=== PATIENT | female | born 1995 | race Caucasian/White ===

== ENCOUNTER 2018-12-25 10:17 | Emergency (ER) | payer OTHER ==
[2018-12-25] MEDS ORDERED: ASPIRIN 81 MG TABLET, CHEWABLE PO ONE (11:40)
--- NOTE | 2018-12-25 11:40 | ER Document Report ---
ED Medical Screen (RME) - General Chief Complaint: Chest Pain Stated Complaint: CHEST PAIN Time Seen by Provider: 12/25/18 11:37 Primary Care Provider: HEALTH,EMPLOYEE [Primary Care Provider] - Follow up as needed Mode of Arrival: Ambulatory Information source: Patient Notes: 23-year-old female presented to ED for chest pain shortness of breath started last week. She states it feels like somebody is stabbing her in the back. She states she cannot breathe at all if she lays down. Her EKG shows a pulse of 130. But over the weekend it got much worse. She states she does not smoke she has not been on any long trips has had no recent surgery but she did just start on control. She states the pain is from the chest through to the back and radiates to the right. She states she went to urgent care yesterday and they diagnosed with bronchitis. She was started on inhaler and prednisone 50 mg for 3 days. She states she went from her desk to her bathroom and back and she could not breathe the day. I have greeted and performed a rapid initial assessment of this patient. A comprehensive ED assessment and evaluation of the patient, analysis of test results and completion of medical decision making process will be conducted by an additional ED providers. - Related Data Allergies/Adverse Reactions: No Known Allergies Allergy (Verified 12/25/18 11:36) Physical Exam - Vital signs Vitals: Temp Pulse Resp BP Pulse Ox 98.3 F 102 H 16 138/68 H 100 12/25/18 10:52 12/25/18 10:52 12/25/18 10:52 12/25/18 10:52 12/25/18 10:52 Course - Vital Signs Vital signs: Temp Pulse Resp BP Pulse Ox 98.3 F 102 H 16 138/68 H 100 12/25/18 10:52 12/25/18 10:52 12/25/18 10:52 12/25/18 10:52 12/25/18 10:52 Doctor's Discharge - Discharge Referrals: HEALTH,EMPLOYEE [Primary Care Provider] - Follow up as needed
--- NOTE | 2018-12-25 12:36 | RADIOLOGY REPORT (SQ) ---
EXAM DESCRIPTION: CHEST 2 VIEWS COMPLETED DATE/TIME: 12/25/2018 12:14 pm REASON FOR STUDY: Chest pain shortness of breath COMPARISON: None. TECHNIQUE: Frontal and lateral radiographic views of the chest acquired. NUMBER OF VIEWS: Two view. LIMITATIONS: None. FINDINGS: LUNGS AND PLEURA: No opacities, masses or pneumothorax. No pleural effusion. MEDIASTINUM AND HILAR STRUCTURES: No masses or contour abnormalities. HEART AND VASCULAR STRUCTURES: Heart normal size. No evidence for failure. BONES: No acute findings. HARDWARE: None in the chest. OTHER: No other significant finding. IMPRESSION: NO SIGNIFICANT RADIOGRAPHIC FINDING IN THE CHEST. TECHNICAL DOCUMENTATION: JOB ID: [id number] [employer]- All Rights Reserved Reading location - IP/workstation name: [email or web address]
[2018-12-25] MEDS ORDERED: NORMAL SALINE 1000 ML 1,000 ML IV ONE (12:54)
--- NOTE | 2018-12-25 12:54 | ER Document Report ---
ED General - General Chief Complaint: Shortness Of Breath Stated Complaint: CHEST PAIN Time Seen by Provider: 12/25/18 11:37 Primary Care Provider: HEALTH,EMPLOYEE [ACTIVE STAFF] - Follow up as needed Mode of Arrival: Ambulatory Notes: HPI: Patient is a 23-year-old female who presents today when she states that the onset within the last week of some pain to the left side of her upper back that radiates to the right side of her back. She also states some mild intermittent radiation to the chest. Worse when she takes a deep breath. She denies any runny nose, congestion, cough, calf pain or leg swelling, recent trips or travel. She states a mild shortness of breath when she walks. She denies any leg swelling. Patient did recently start control pills. No history of DVT/PE in the patient or family. Patient did see an urgent care yesterday and was started on an inhaler with steroids for possible bronchitis. Patient states she has not been coughing. Patient does states she has a long history of anxiety. ROS: See HPI All other review of systems reviewed and otherwise negative Reviewed vital signs and nursing note as charted by RN. PHYSICAL EXAM: CONSTITUTIONAL: Alert and oriented and responds appropriately to questions. Well-appearing; well-nourished HEAD: Normocephalic; atraumatic EYES: PERRL; Conjunctivae clear, sclerae non-icteric ENT: Normal nose; no rhinorrhea; moist mucous membranes; pharynx without lesions noted NECK: Supple without meningismus; non-tender; no cervical lymphadenopathy, no masses CARD: Regular rate and rhythm; no murmurs; symmetric distal pulses RESP: Normal chest excursion without splinting or tachypnea; breath sounds clear and equal bilaterally; no wheezes, no rhonchi, no rales ABD/GI: Normal bowel sounds; non-distended; soft, non-tender; no palpable organomegaly or masses BACK: The back appears normal and is non-tender to palpation of the upper back or midline spine EXT: Normal ROM in all joints; non-tender to palpation; no edema SKIN: No acute lesions noted NEURO: CN 2-12 intact; 5/5 bilateral upper and lower extremity strength with sensation intact to light touch PSYCH: The patient's mood and manner are appropriate. Grooming and personal hygiene are appropriate. TRAVEL OUTSIDE OF THE [place] IN LAST 30 DAYS: No - Related Data Allergies/Adverse Reactions: No Known Allergies Allergy (Verified 12/25/18 11:36) Home Medications: [facility] Past Medical History - General Information source: Patient - Social History Smoking Status: Former Smoker Chew tobacco use (# tins/day): No Frequency of alcohol use: Occasional Drug Abuse: None Family History: Reviewed & Not Pertinent Patient has suicidal ideation: No Patient has homicidal ideation: No Physical Exam - Vital signs Vitals: Temp Pulse Resp BP Pulse Ox 98.3 F 102 H 16 138/68 H 100 12/25/18 10:52 12/25/18 10:52 12/25/18 10:52 12/25/18 10:52 12/25/18 10:52 Course - Re-evaluation Re-evalutation: Given the history and physical examination, currently with a heart rate of 69, I do believe this is most likely musculoskeletal in nature. However given the tachycardia, despite the anxiety, we will order a cardiac panel, troponin, d- dimer, and x-ray the chest. I would like to evaluate for the possibility of pericarditis, myocarditis, pneumothorax, or pulmonary embolism. 12/25/18 12:54 EKG shows a heart of 130, sinus tachycardia, normal axis, no ST elevation or depression 12/25/18 15:39 Heart rate is currently 82. Vital signs are stable. Satting 99% on room air. D-dimer, troponin, x-ray of the chest, and EKG as recorded. Given the above history and physical, I do not believe any further imaging or laboratory work is necessary at this time. I do believe this is most likely musculoskeletal in nature. I discussed ibuprofen treatment management with the patient as well as strict return precautions. - Vital Signs Vital signs: Temp Pulse Resp BP Pulse Ox 98.3 F 102 H 14 115/53 L 99 12/25/18 10:52 12/25/18 10:52 12/25/18 14:06 12/25/18 14:06 12/25/18 14:06 - Laboratory Result Diagrams: 12/25/18 14:03 12/25/18 14:03 Laboratory results interpreted by me: 12/25/18 12/25/18 14:03 14:03 Lymph % (Auto) 6.7 L [place] % (Auto) 0.6 L Seg Neutrophils % 92.7 H Chloride 108 H Carbon Dioxide 21 L Glucose 118 H Alkaline Phosphatase 32 L Discharge - Discharge Clinical Impression: Musculoskeletal back pain, Pleurisy Condition: Good Disposition: HOME, SELF-CARE Additional Instructions: Come back immediately with any increased pain, shortness of breath, fevers, vomiting, calf pain or leg swelling, change in location or quality of pain, or any other acute problems. Please follow-up with your primary care provider as discussed. Referrals: HEALTH,EMPLOYEE [ACTIVE STAFF] - Follow up as needed
[2018-12-25 14:23] LABS: ABSOLUTE LYMPHOCYTES (AUTO) 0.6 10^3/uL (0.5-4.7); ABSOLUTE MONOCYTES (AUTO) 0.1 10^3/uL (0.1-1.4); ABSOLUTE NEUT (AUTO) 8.2 10^3/uL (1.7-8.2); HEMATOCRIT 42.8 % (36.0-47.0); HEMOGLOBIN 14.7 g/dL (12.0-15.5); LYMPHOCYTES % (AUTO) 6.7 % (13-45); MEAN CORPUSCULAR HEMOGLOBIN 28.8 pg (27.0-33.4); MEAN CORPUSCULAR HGB CONC 34.4 g/dL (32.0-36.0); MEAN CORPUSCULAR VOLUME 84 fl (80-97); MONOCYTES % (AUTO) 0.6 % (3-13); PLATELET COUNT 201 10^3/uL (150-450); RED CELL DISTRIBUTION WIDTH 13.3 % (11.5-14.0); SEGMENTED NEUTROPHILS % (AUTO) 92.7 % (42-78); TOTAL CELLS COUNTED % (AUTO) 100 %; WHITE BLOOD COUNT 8.8 10^3/uL (4.0-10.5)
[2018-12-25 14:42] LABS: ALBUMIN 4.8 g/dL (3.5-5.0); ALKALINE PHOSPHATASE 32 U/L (38-126); ANION GAP 14 (5-19); ASPARTATE AMINO TRANSFERASE 21 U/L (14-36); BILIRUBIN,DIRECT 0.2 mg/dL (0.0-0.4); BILIRUBIN,TOTAL 0.7 mg/dL (0.2-1.3); BLOOD UREA NITROGEN 11 mg/dL (7-20); CALCIUM 9.8 mg/dL (8.4-10.2); CARBON DIOXIDE 21 mmol/L (22-30); CHLORIDE 108 mmol/L (98-107); GLUCOSE 118 mg/dL (75-110); POTASSIUM 4.1 mmol/L (3.6-5.0)
[2018-12-25 14:58] LABS: NT PRO BNP 122 pg/mL (<125)
[2018-12-25 15:02] LABS: TROPONIN I < 0.012 ng/mL
[2018-12-25 16:34] VITALS: BP 114/67
--- NOTE | 2018-12-26 09:34 | EKG REPORT ---
SEVERITY:- OTHERWISE NORMAL ECG - SINUS TACHYCARDIA : Confirmed by: Maria Antonia Gil 26-Dec-2018 09:34:20
== END 2018-12-25 16:32 | disposition home or self-care (01) ==
LOC: ER 10:17
DX: M54.9 Dorsalgia, unspecified (principal); R09.1 Pleurisy; R07.9 Chest pain, unspecified; R06.02 Shortness of breath; R00.0 Tachycardia, unspecified; Z87.891 Personal history of nicotine dependence
CPT/HCPCS: 93005; 36415; 83735; 84443; 84703; 85025; 80053; 84484; 85379; 83880; 71046; 93010; J7030; 96360; 96361; 99284

== ENCOUNTER 2019-07-20 12:48 | Emergency (ER) | payer OTHER ==
[2019-07-20] MEDS ORDERED: METOCLOPRAMIDE HCL INJ/PF 10 MG/2 ML SDV IV ONE (13:03)
[2019-07-20] MEDS ORDERED: DIPHENHYDRAMINE HCL 50 MG/ML VIAL IV ONE (13:03)
--- NOTE | 2019-07-20 13:08 | ER Document Report ---
ED Medical Screen (RME) - General Chief Complaint: Nausea/Vomiting Stated Complaint: NAUSEA/VOMITING, 9 WKS Time Seen by Provider: 07/20/19 13:00 Mode of Arrival: Ambulatory Information source: Patient Notes: 24-year-old female presented to ED for complaint of nausea and vomiting during . She states she feels like she is dehydrated now because she is vomited 3 times. She is 9 weeks . 2 para 1. 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 She states the only medical history is cerebral palsy. I have greeted and performed a rapid initial assessment of this patient. A comprehensive ED assessment and evaluation of the patient, analysis of test results and completion of medical decision making process will be conducted by an additional ED providers. TRAVEL OUTSIDE OF THE [place] IN LAST 30 DAYS: No - Related Data Allergies/Adverse Reactions: No Known Allergies Allergy (Verified 12/25/18 11:36) Physical Exam - Vital signs Vitals: Temp Pulse Resp BP Pulse Ox 98.4 F 63 20 132/66 H 97 07/20/19 12:55 07/20/19 12:55 07/20/19 12:55 07/20/19 12:55 07/20/19 12:55 Course - Vital Signs Vital signs: Temp Pulse Resp BP Pulse Ox 98.4 F 63 20 132/66 H 97 07/20/19 13:00 07/20/19 12:55 07/20/19 12:55 07/20/19 12:55 07/20/19 12:55
[2019-07-20] MEDS: NORMAL SALINE 1000 ML 1,000 ML IV PRN ×2 (13:57→14:59)
[2019-07-20 14:04] LABS: ABSOLUTE EOSINOPHILS # (AUTO) 0.1 10^3/uL (0.0-0.6); ABSOLUTE LYMPHOCYTES (AUTO) 2.3 10^3/uL (0.5-4.7); ABSOLUTE MONOCYTES (AUTO) 0.8 10^3/uL (0.1-1.4); ABSOLUTE NEUT (AUTO) 8.5 10^3/uL (1.7-8.2); BASOPHILS % (AUTO) 0.1 % (0-2); EOSINOPHILS % (AUTO) 0.5 % (0-6); HEMATOCRIT 43.1 % (36.0-47.0); HEMOGLOBIN 14.7 g/dL (12.0-15.5); MEAN CORPUSCULAR HEMOGLOBIN 28.9 pg (27.0-33.4); MEAN CORPUSCULAR HGB CONC 34.2 g/dL (32.0-36.0); MEAN CORPUSCULAR VOLUME 85 fl (80-97); MONOCYTES % (AUTO) 7.1 % (3-13); PLATELET COUNT 229 10^3/uL (150-450); RED BLOOD COUNT 5.09 10^6/uL (3.72-5.28); RED CELL DISTRIBUTION WIDTH 13.3 % (11.5-14.0); SEGMENTED NEUTROPHILS % (AUTO) 72.3 % (42-78); TOTAL CELLS COUNTED % (AUTO) 100 %; WHITE BLOOD COUNT 11.7 10^3/uL (4.0-10.5)
[2019-07-20 14:12] LABS: APPEARANCE,URINE SLIGHTLY-CLOUDY; BILIRUBIN,URINE NEGATIVE (NEGATIVE); COLOR,URINE YELLOW; GLUCOSE, URINE NEGATIVE (NEGATIVE); KETONES,URINE NEGATIVE (NEGATIVE); LEUKOCYTE ESTERASE,URINE NEGATIVE (NEGATIVE); NITRITE,URINE NEGATIVE (NEGATIVE); PROTEIN,URINE 30 mg/dL (NEGATIVE); URINE SPECIFIC GRAVITY 1.027; UROBILINOGEN,URINE NEGATIVE mg/dL (<2.0)
[2019-07-20 14:22] LABS: ALBUMIN 4.5 g/dL (3.5-5.0); ALKALINE PHOSPHATASE 30 U/L (38-126); ANION GAP 10 (5-19); ASPARTATE AMINO TRANSFERASE 26 U/L (14-36); BILIRUBIN,TOTAL 0.5 mg/dL (0.2-1.3); BLOOD UREA NITROGEN 12 mg/dL (7-20); CALCIUM 9.5 mg/dL (8.4-10.2); CARBON DIOXIDE 24 mmol/L (22-30); CHLORIDE 100 mmol/L (98-107); GLUCOSE 97 mg/dL (75-110); POTASSIUM 4.1 mmol/L (3.6-5.0); TOTAL PROTEIN 7.6 g/dL (6.3-8.2)
--- NOTE | 2019-07-20 15:49 | ER Document Report ---
ED GI/ - General Chief Complaint: Nausea/Vomiting Stated Complaint: NAUSEA/VOMITING, 9 WKS Time Seen by Provider: 07/20/19 13:00 Primary Care Provider: SHANNON FALLON MD [ACTIVE STAFF] - Follow up as needed Mode of Arrival: Ambulatory Information source: Patient Notes: Patient is currently 9 weeks G2, P1. Patient complains of nausea vomiting during her . Patient states symptoms worsened today and she feels dehydrated. Patient reports vomiting 3 times. Patient has been taking Zofran at home without improvement of her symptoms. Patient denies any abdominal pain vaginal bleeding or discharge. TRAVEL OUTSIDE OF THE [place] IN LAST 30 DAYS: No - HPI Patient complains to provider of: Vomiting. No: Abdominal pain Onset: Last week Timing/Duration: Worse Quality of pain: No pain Pain Level: Denies Context: Associated symptoms: Nausea, Vomiting. denies: Dysuria, Fever, Vaginal discharge Exacerbated by: Denies Relieved by: Denies Similar symptoms previously: Yes Recently seen / treated by doctor: No - Related Data Allergies/Adverse Reactions: No Known Allergies Allergy (Verified 12/25/18 11:36) Past Medical History - General Information source: Patient - Social History Smoking Status: Never Smoker Frequency of alcohol use: None Drug Abuse: None Occupation: [employer] Lives with: Family Family History: Reviewed & Not Pertinent Patient has homicidal ideation: No - Medical History Medical History: Other - Cerebral palsy Past Surgical History: Reports: Hx Cholecystectomy Review of Systems - Review of Systems Constitutional: No symptoms reported. denies: Fever EENT: No symptoms reported Cardiovascular: No symptoms reported. denies: Chest pain Respiratory: No symptoms reported. denies: Cough, Short of breath Gastrointestinal: Nausea, Vomiting, Poor fluid intake. denies: Abdominal pain, Diarrhea Genitourinary: No symptoms reported Female Genitourinary: . denies: Vaginal discharge, Vaginal bleeding Musculoskeletal: No symptoms reported. denies: Back pain Skin: No symptoms reported Hematologic/Lymphatic: No symptoms reported Neurological/Psychological: No symptoms reported Physical Exam - Vital signs Vitals: Temp Pulse Resp BP Pulse Ox 98.4 F 63 20 132/66 H 97 07/20/19 12:55 07/20/19 12:55 07/20/19 12:55 07/20/19 12:55 07/20/19 12:55 - General General appearance: Appears well, Alert In distress: None - HEENT Head: Normocephalic Eyes: Normal Conjunctiva: Normal Nasal: Normal Mouth/Lips: Normal Pharynx: Normal - Respiratory Respiratory status: No respiratory distress Chest status: Nontender Breath sounds: Normal. No: Rales, Rhonchi, Stridor, Wheezing Chest palpation: Normal - Cardiovascular Rhythm: Regular Heart sounds: S1 appreciated, S2 appreciated Murmur: No - Abdominal Inspection: Normal Distension: No distension Bowel sounds: Normal Tenderness: Nontender Organomegaly: No organomegaly - Back Back: Normal, Nontender. No: CVA tenderness - Extremities General upper extremity: Normal inspection General lower extremity: Normal inspection, Normal ROM - Neurological Neuro grossly intact: Yes Cognition: Normal [place] Coma Scale Eye Opening: Spontaneous [place] Coma Scale Verbal: Oriented [place] Coma Scale Motor: Obeys Commands [place] Coma Scale Total: 15 - Psychological Associated symptoms: Normal affect, Normal mood - Skin Skin Temperature: Warm Skin Moisture: Dry Skin Color: Normal Course - Re-evaluation Re-evalutation: 07/20/19 15:47 Patient eating cookies at this time, patient reports nausea is improved after the medication. Patient's IV fluids continue to infuse at this time. Patient's abdomen soft nontender. We will treat for dehydration and after IV fluids have infused will plan for discharge at this time. Patient is agreeable with this plan of care. Patient does have Zofran and Phenergan at home that she can take for her nausea. - Vital Signs Vital signs: Temp Pulse Resp BP Pulse Ox 98.5 F 79 18 123/64 100 07/20/19 16:53 07/20/19 16:53 07/20/19 16:53 07/20/19 16:53 07/20/19 16:53 - Laboratory Result Diagrams: 07/20/19 13:45 07/20/19 13:45 Laboratory results interpreted by me: 07/20/19 07/20/19 07/20/19 13:45 13:45 13:45 WBC 11.7 H Absolute Neuts (auto) 8.5 H Sodium 133.7 L Alkaline Phosphatase 30 L Beta HCG, Quant 310236.00 H Urine Protein 30 H 07/20/19 15:48 Labs- All tests 24 hr 07/20/19 07/20/19 07/20/19 13:45 13:45 13:45 WBC 11.7 H RBC 5.09 Hgb 14.7 Hct 43.1 MCV 85 MCH 28.9 MCHC 34.2 RDW 13.3 Plt Count 229 Lymph % (Auto) 20.0 [place] % (Auto) 7.1 Eos % (Auto) 0.5 Baso % (Auto) 0.1 Absolute Neuts (auto) 8.5 H Absolute Lymphs (auto) 2.3 Absolute Monos (auto) 0.8 Absolute Eos (auto) 0.1 Absolute Basos (auto) 0.0 Seg Neutrophils % 72.3 Sodium 133.7 L Potassium 4.1 Chloride 100 Carbon Dioxide 24 Anion Gap 10 BUN 12 Creatinine 0.52 Est GFR ( Amer) > 60 Est GFR (MDRD) Non-Af > 60 Glucose 97 Calcium 9.5 Total Bilirubin 0.5 Direct Bilirubin 0.0 Neonat Total Bilirubin Not Reportable Neonat Direct Bilirubin Not Reportable Neonat Indirect Bili Not Reportable AST 26 ALT 16 Alkaline Phosphatase 30 L Total Protein 7.6 Albumin 4.5 Beta HCG, Quant 775739.00 H Total Beta HCG POSITIVE Urine Color YELLOW Urine Appearance SLIGHTLY-CLOUDY Urine pH 5.0 Ur Specific [place] 1.027 Urine Protein 30 H Urine Glucose (UA) NEGATIVE Urine Ketones NEGATIVE Urine Blood NEGATIVE Urine Nitrite NEGATIVE Urine Bilirubin NEGATIVE Urine Urobilinogen NEGATIVE Ur Leukocyte Esterase NEGATIVE Urine WBC (Auto) 1 Urine RBC (Auto) 2 Urine Bacteria (Auto) TRACE Squamous Epi Cells Auto 1 Urine Mucus (Auto) MANY Urine Ascorbic Acid NEGATIVE Discharge - Discharge Clinical Impression: Vomiting during Condition: Stable Disposition: HOME, SELF-CARE Instructions: Intravenous (IV) Fluids ([facility]), Vomiting ([facility]) Additional Instructions: Return immediately for any new or worsening symptoms Followup with your primary care provider, call tomorrow to make a followup appointment Take your nausea medication that you have at home as prescribed Forms: Return to Work Referrals: SHANNON FALLON MD [ACTIVE STAFF] - Follow up as needed
[2019-07-20 16:54] VITALS: BP 123/64
== END 2019-07-20 16:54 | disposition home or self-care (01) ==
LOC: ER 12:48
DX: O21.9 Vomiting of pregnancy, unspecified (principal); Z3A.09 9 weeks gestation of pregnancy
CPT/HCPCS: 99284; 96361; 96374; 96375; 36415; 84702; 85025; 80053; 81001; J1200; J2765; J7030

== ENCOUNTER 2020-02-25 07:49 | Inpatient (IN) | payer OTHER ==
[2020-02-25] MEDS ORDERED: RINGERS SOLUTION,LACTATED 1,000 ML IV ONE (08:17)
[2020-02-25] MEDS ORDERED: RINGERS SOLUTION,LACTATED 500 ML IV ONE (08:17)
[2020-02-25] MEDS ORDERED: OXYTOCIN/0.9 % SODIUM CHLORIDE 30 UNIT/500 ML RTUINJ IV PRN ×2 (08:17→15:08)
[2020-02-25 08:43] LABS: APPEARANCE,URINE SLIGHTLY-CLOUDY; BILIRUBIN,URINE NEGATIVE (NEGATIVE); COLOR,URINE YELLOW; GLUCOSE, URINE NEGATIVE (NEGATIVE); KETONES,URINE NEGATIVE (NEGATIVE); LEUKOCYTE ESTERASE,URINE LARGE (NEGATIVE); NITRITE,URINE NEGATIVE (NEGATIVE); PROTEIN,URINE NEGATIVE (NEGATIVE); URINE SPECIFIC GRAVITY 1.017; UROBILINOGEN,URINE NEGATIVE mg/dL (<2.0)
[2020-02-25 08:58] LABS: ABSOLUTE EOSINOPHILS # (AUTO) 0.1 10^3/uL (0.0-0.6); ABSOLUTE LYMPHOCYTES (AUTO) 1.8 10^3/uL (0.5-4.7); ABSOLUTE MONOCYTES (AUTO) 0.8 10^3/uL (0.1-1.4); BASOPHILS % (AUTO) 0.2 % (0-2); EOSINOPHILS % (AUTO) 0.8 % (0-6); HEMATOCRIT 29.8 % (36.0-47.0); HEMOGLOBIN 9.9 g/dL (12.0-15.5); LYMPHOCYTES % (AUTO) 18.4 % (13-45); MEAN CORPUSCULAR HGB CONC 33.2 g/dL (32.0-36.0); MEAN CORPUSCULAR VOLUME 72 fl (80-97); MONOCYTES % (AUTO) 8.6 % (3-13); PLATELET COUNT 234 10^3/uL (150-450); RED BLOOD COUNT 4.12 10^6/uL (3.72-5.28); RED CELL DISTRIBUTION WIDTH 15.3 % (11.5-14.0); TOTAL CELLS COUNTED % (AUTO) 100 %; WHITE BLOOD COUNT 9.8 10^3/uL (4.0-10.5)
[2020-02-25 09:07] LABS: URINE AMPHETAMINES SCREEN NEGATIVE; URINE BARBITURATES SCREEN NEGATIVE; URINE BENZODIAZEPINES SCREEN NEGATIVE; URINE COCAINE SCREEN NEGATIVE; URINE MARIJUANA (THC) SCREEN NEGATIVE; URINE METHADONE SCREEN NEGATIVE; URINE PHENCYCLIDINE SCREEN NEGATIVE
[2020-02-25] MEDS ORDERED: OXYTOCIN/0.9 % SODIUM CHLORIDE 0 UNIT/0 ML RTUINJ ONE (09:13)
[2020-02-25] MEDS ORDERED: OXYTOCIN 10 UNIT/ML VIAL ONE (09:13)
[2020-02-25] MEDS ORDERED: MISOPROSTOL 0.2 MG TABLET ONE (09:13)
[2020-02-25] MEDS ORDERED: LIDOCAINE 1% INJ-PF (10 MG/ML) 30 ML SDV ONE (09:13)
[2020-02-25] MEDS ORDERED: OXYTOCIN/0.9 % SODIUM CHLORIDE 30 UNIT/500 ML RTUINJ ONE (09:24)
--- NOTE | 2020-02-25 09:47 | Admission Physical ---
Datetime Report Generated by CPN: 02/25/2020 09:47 CURRENT ADMISSION Chief Complaint: Scheduled Induction of Labor Indication for Induction: Post Dates Admit Impression : Postterm, Intrauterine ; No Active Labor; Induction of Labor Admit Plan: Admit to Unit; Initiate Labor Induction Protocol Admit Plan- Other: GBS Neg ALLERGIES Medication Allergies: No Medication Allergies: No Known Allergies (02/25/2020) Latex: No Latex Allergies OBSTETRICAL HISTORY EDC: 02/18/2020 00:00 : 7 Para: 1 Term: 1 : 0 SAB: 3 IAB: 2 Ectopic: 0 Livin Cesareans: 0 VBACs: 0 Multiple Births: 0 Gestational Diabetes: No Rh Sensitization: No Incompetent Cervix: No TIARRA: No Infertility: No ART Treatment: No Uterine Anomaly: No IUGR: No Hx Previous C/S: No Macrosomia: No Hx Loss/Stillborn: No PIH: No Hx : No Placenta Previa/Abruption: No Depression/PP Depression: No PTL/PROM: No Post Hemorrhage: No Current Procedures: Ultrasound Obstetrical History Comments: G1- G2 G3 G4 G5 G6 G7-current SEE RECORDS Alcohol: No Marijuana : No Cocaine: No Other Illicit Drugs: No Cigarettes: Former Smoker. [id number] MEDICAL HISTORY Diabetes: No Blood Transfusion: No Pulmonary Disease (Asthma, TB): No Breast Disease: No Hypertension: No Sander Portable Machine Surgery: No Heart Disease: No Hosp/Surgery: Yes Autoimmune Disorder: No Anesthetic Complications: No Kidney Disease: No Abnormal Pap Smear: No Neuro/Epilepsy: No Psychiatric Disorders: Yes Other Medical Diseases: No Hepatitis/Liver Disease: No Significant Family History: No Varicosities/Phlebitis: No Trauma/Violence : No Thyroid Dysfunction: No Medical History Comments: Childbirth; Gallbladder removal, Anxiety, Cerabal palsy right side from ; Ecmo at ; PCOS INFECTIOUS HISTORY Gonorrhea: No Genital Herpes: No Chlamydia: No Tuberculosis: No Syphilis: No Hepatitis: No HIV/AIDS Exposure: No Rash or Viral Illness: No HPV: No PHYSICAL EXAM General: Normal HEENT: Deferred Neurologic: Normal Thyroid: Deferred Heart: Normal Lungs: Normal Breast: Deferred Back: Deferred Abdomen: Normal Genitourinary Exam: Normal Extremities: Normal DTRs: Deferred Pelvic Type: Adequate Physical Exam Comments: cervix 1cm per RN Vital Signs: Reviewed FETUS A EGA: 41.0 Monitoring: External US FHR- Baseline: 140 Variability: Moderate 6-25bpm Decelerations: None FHR Category: Category I Presentation: Vertex Admit Comment: plans epirual anticipate PLANS FOR LABOR AND DELIVERY Labor and Delivery: None Pain Management: Epidural Feeding Preference: Breast Benefit of Breast Feed Discussed: Yes Circumcision: N/A INFORMED CONSENT Assignment: Kym Shine MD Signature: with User ID: Holly : with User ID: Holly
[2020-02-25] MEDS ORDERED: EPHEDRINE SULFATE INJ 50 MG/1 ML AMPULE ONE (12:05)
[2020-02-25] MEDS ORDERED: ROPIVACAINE HCL 0.2% INJ/PF (2 MG/ML) 20 ML SDV ONE (12:05)
[2020-02-25] MEDS ORDERED: FENTANYL/BUPIVACAINE/NS/PF 300 MCG/150 ML RTUINJ EPI ONE (12:05)
[2020-02-25] MEDS ORDERED: ACETAMINOPHEN 325 MG TABLET PO PRN (15:08)
[2020-02-25] MEDS ORDERED: VARICELLA VACC/PF (1350 UNIT/0.5 ML) 0.5 ML VIAL SUBCUT PRN (15:08)
[2020-02-25] MEDS ORDERED: GLYCERIN/WITCH HAZEL LEAF 1 EACH MED..WIPE TP PRN (15:08)
[2020-02-25] MEDS ORDERED: FAMOTIDINE 20 MG TABLET PO PRN (15:08)
[2020-02-25] MEDS ORDERED: PSEUDOEPHEDRINE HCL 30 MG TABLET PO PRN (15:08)
[2020-02-25] MEDS ORDERED: DIBUCAINE 1% OINTMENT 28 GM TP PRN (15:08)
[2020-02-25] MEDS ORDERED: ACETAMINOPHEN WITH CODEINE #3 TABLET PO PRN (15:08)
[2020-02-25] MEDS ORDERED: MAGNESIUM HYDROXIDE SUSP 30 ML UDCUP PO PRN (15:08)
[2020-02-25] MEDS ORDERED: MAG HYDROX/AL HYDROX/SIMETH SUSP 30 ML UDCUP PO PRN (15:08)
[2020-02-25] MEDS ORDERED: DIPHENHYDRAMINE HCL 25 MG CAPSULE PO PRN (15:08)
[2020-02-25] MEDS ORDERED: ZOLPIDEM TARTRATE 5 MG TABLET PO PRN (15:08)
[2020-02-25] MEDS ORDERED: MEASLES,MUMPS&RUBELLA VACC/PF 0.5 ML VIAL SUBCUT PRN (15:08)
[2020-02-25] MEDS ORDERED: ACETAMINOPHEN 650 MG SUPP.RECT PR PRN (15:08)
[2020-02-25] MEDS ORDERED: DIPH/PERTUSS(ACELL)/TETANUS VAC/PF 0.5 ML SYR (>=10YO) IM PRN (15:08)
[2020-02-25] MEDS ORDERED: BENZOCAINE/MENTHOL AEROSOL SPRAY 56 ML TOP PRN (15:08)
--- NOTE | 2020-02-25 15:37 | Delivery Summary ---
Del Sum A-C Datetime Report Generated by CPN: 02/25/2020 15:37 DELIVERY PERSONNEL DELIVERY PERSONNEL: [id number] Delivery Doctor:: Cecilia Gorman CNM Labor and Delivery Nurse:: Arlene Shine RNjunior high [employer] principal Nurse:: JANEL Garrett Nursery Nurse:: Samantha Perez RN Canine Enforcement Officer/TANK WAGON DRIVER: Tami Pak, FIXED INCOME ANALYST MATERNAL INFORMATION Delivery Anesthesia: Epidural Medications After Delivery: Pitocin 10 Units IM; Pitocin 30 Units in 500ml NS/D5W Delivery QBL: 275 Delivery QBL Comment: 275 Maternal Complications: None Provider Comments: SVDVF KENTRELL, shoulders delivered easily. vigorous to mother abd. Cord clamped x 2 cut per pt mother. 3VC noted. Placenta via Gorman, intact. Bleeding stabilized and fundus firmed. Repair as above. Bleeding increase noted during repair x 2, clots removed from CAITLYN. 10mg Pitocin IM into CAITLYN. Bleeding stabilized. Mother and baby stable. Apgars, 8,9. QBL 275 LABOR SUMMARY EDC: 02/18/2020 00:00 No. Babies in Womb: 1 Attempted: No Labor Anesthesia: Epidural LABOR INFORMATION Reason for Induction: Post Dates Onset of Labor: 02/25/2020 11:56 Complete Dilatation: 02/25/2020 13:51 Oxytocin: Induction Group B Beta Strep: Negative Antibiotics # of Doses: n/a Name of Antibiotic Given: n/a Steroids Given: None Reason Steroids Not Administered: Not Applicable MEMBRANES Membranes Rupture Method: Artificial Rupture of Membranes: 02/25/2020 11:56 Length of Rupture (hr): 2.37 Amniotic Fluid Color: Bloody Amniotic Fluid Amount: Scant Amniotic Fluid Odor: Normal STAGES OF LABOR Stage 1 hr: 1 Stage 1 min: 55 Stage 2 hr: 0 Stage 2 min: 27 Stage 3 hr: 0 Stage 3 min: 5 Total Time in Labor hr: 2 Total Time in Labor min: 27 VAGINAL DELIVERY Episiotomy: None Laceration #1: Perineal Laceration Extension #1: Second Degree Laceration #2: Periurethral Laceration Extension #2: First Degree Laceration Repair: Yes Laceration Repair Note: chromic suture used, perineum repaired in usual fashion epidural anesthesia for sutures Sponge Count Correct: Yes Sharps Count Correct: Yes CSECTION DELIVERY Primary Indication: N/A BABY A INFORMATION Infant Delivery Date/Time: 02/25/2020 14:18 Method of Delivery: Vaginal Nurse Controlled Delivery: No Born in Route : No : N/A Forceps: N/A Vacuum Extraction: N/A Shoulder Dystocia : No PRESENTATION/POSITION BABY A Presentation: Cephalic Cephalic Presentation: Vertex Vertex Position: Right Occipital Anterior Breech Presentation: N/A PLACENTA INFORMATION BABY A Placenta Delivery Time : 02/25/2020 14:23 Placenta Method of Delivery: Spontaneous Placenta Status: Delivered SCORES BABY A Heart Rate 1 min: >100 bpm Resp Effort 1 min: Good Cry Reflex Irritability 1 min: Cough or Sneeze or Pulls Away Muscle Tone 1 min: Active Motion Color 1 min: Blue/Pale Resuscitation Effort 1 min: Tactile Stimulation SCORE 1 MIN: 8 Heart Rate 5 min: >100 bpm Resp Effort 5 min: Good Cry Reflex Irritability 5 min: Cough or Sneeze or Pulls Away Muscle Tone 5 min: Active Motion Color 5 min: Body [place], Extremities Blue Resuscitation Effort 5 min: Tactile Stimulation SCORE 5 MIN: 9 INFORMATION BABY A Gestational Age at Delivery: 41.0 Gestational Status: Late Term- 41- 41.6 Weeks Outcome : Liveborn Condition : Stable Sex: Female IDENTIFICATION BABY A Verification Date/Time: 02/25/2020 14:35 ID Band Number: [id number] Mother's Name Verified: Yes Infant RN Verifying Infant: AFeuston, RN Additional Verifying Personnel: F. Pak, FIXED INCOME ANALYST WEIGHT/LENGTH BABY A Birthweight (gm): 3460 Weight (lb): 7 Weight (oz): 10 Infant Length (in): 20.25 Infant Length (cm): 51.44 CORD INFORMATION BABY A No. Cord Vessels: 3 Nuchal Cord : N/A Infant Suction: Mouth; Nose ASSESSMENT BABY A Infant Complications: None Physical Findings at Delivery: Within Normal Limits Skin to Skin: Yes Skin to Skin Time (min): 60 Transferred To: Remains with Mother BABY B INFORMATION : N/A SIGNATURES Assignment: Kym Shine MD Signature: with User ID: [email or web address] : with User ID: Holly : I was personally available for consultation and serving as supervising physician for the MLP.
--- NOTE | 2020-02-25 15:37 | Birth Certificate Data ---
Cert Data Datetime Report Generated by CPN: 02/25/2020 15:37 CERTIFICATE DATA Delivery Provider: Cecilia Gorman CNM (02/25/2020 07:55:Arlene Shine RN) 47a. Care: Yes (02/25/2020 07:55:Arlene Shine RN) 47b. Date of First Visit: 07/11/2020 00:00 (02/25/2020 07:55:Arlene Shine RN) 47c. Date of Last Visit: 02/20/2020 00:00 (02/25/2020 07:55:Arlene Shine RN) 47d. Number of Visits: 12 (02/25/2020 07:55:Arlene Shine RN) 48a. Number of Prev Live Births: 1 (02/25/2020 07:55:Arlene Shine RN) 48b. Now Livin (02/25/2020 07:55:Arlene Shine RN) 48c. Live Births Now : 0 (02/25/2020 07:55:QS system process) 48d. Date of Last Live : 12/23/2015 00:00 (02/25/2020 07:55:Arlene Shine RN) 48e. Losses: 5 (02/25/2020 07:55:Arlene Shine RN) 48f. Date of Last Preg Loss: 03/25/2017 00:00 (02/25/2020 07:55:Arlene Shine RN) RISK FACTORS IN THIS 49a. Diabetes: No (02/25/2020 07:55:Arlene Shine RN) 49b. Hypertension: No (02/25/2020 07:55:Arlene Shine RN) 49c. Previous Births: 0 (02/25/2020 07:55:Arlene Shine RN) 49d. Stillborns: No (02/25/2020 07:55:Arlene Shine RN) 49d. IUGR: No (02/25/2020 07:55:Arlene Shine RN) 49e. Infertility Treatment: No (02/25/2020 07:55:Arlene Shine RN) 49f. Previous Cesareans: 0 (02/25/2020 07:55:Arlene Shine RN) Mother's Height 50b. Height Inches: 63 (02/25/2020 08:04:QS system process) Mother's Weight 51a. Pre- Weight (lbs): 142 (02/25/2020 07:55:Arlene Shine RN) 51b. Weight at Delivery (lbs): 174 (02/25/2020 08:04:QS system process) 52. Dt Last Normal Menses Began: 05/14/2019 00:00 (02/25/2020 07:55:Arlene Shine RN) Infections Present/Treated 53a. Gonorrhea: No (02/25/2020 07:55:Arlene Shine RN) 53b. Syphilis: No (02/25/2020 07:55:Arlene Shine RN) 53c. Chlamydia: No (02/25/2020 07:55:Arlene Shine RN) 53d. Hepatitis B: No (02/25/2020 07:55:Arlene Shine RN) Results this Hospital Visit: Negative (02/25/2020 07:55:Arlene Shine RN) 53h. Mother Tested for HBsAG: Yes (02/25/2020 07:55:Arlene Shine RN) 53j. Test Result: Negative (02/25/2020 07:55:Arlene Shine RN) Obstetric Procedures 54a, b, c. Obstetric Procedures: Ultrasound (02/25/2020 07:55:Alrene Shine RN) Cigarette Smoking Cigarette Smoking: Former Smoker. [id number] (02/25/2020 07:55:Arlene Shine RN) 55a. 3 Months Before Preg - Ci (02/25/2020 07:55:Arlene Shine RN) 55b. 1st Trimester of Preg- Ci (02/25/2020 07:55:Arlene Shine RN) 55c. 2nd Trimester of Preg- Ci (02/25/2020 07:55:Arlene Shine RN) 55d. 3rd Trimester of Preg- Ci (02/25/2020 07:55:Arlene Shine RN) Onset of Labor 56a. PROM >12 Hrs: 2.37 (02/25/2020 07:55:QS system process) 56b. Precipitous Labor <3 Hrs: 2 (02/25/2020 07:55:QS system process) 56c. Prolonged Labor > 20 Hrs: 2 (02/25/2020 07:55:QS system process) 57a. Induction of Labor: Induction (02/25/2020 07:55:Arlene Shine RN) 57c. Non-Vertex Presentation A: Vertex (02/25/2020 07:55:Laina Theodore RN) 57d. Steroids - Lung Mat: None (02/25/2020 07:55:Arlene Shine RN) 57d. Steroids - Lung Mat: Not Applicable (02/25/2020 07:55:Arlene Shine RN) 57f. Mat [place] or Temp >100.4: 97.3 (02/25/2020 07:55:Arlene Shine RN) 57g. Moderate/Heavy Meconium: Bloody (02/25/2020 11:56:Arlene Shine RN) 57h. Intolerance of Labor: N/A (02/25/2020 07:55:Laina Theodore RN) 57i. Epidural/Spinal Anesthesia: Epidural (02/25/2020 07:55:Arlene Shine RN) Method of Delivery 58a. Forceps - Unsuccessful A: N/A (02/25/2020 07:55:Laina Theodore RN) 58b. Vacuum - Unsuccessful A: N/A (02/25/2020 07:55:Laina Theodore RN) 58c. Presentation at 58c. Presentation at - A : Vertex (02/25/2020 07:55:Laina Theodore RN) 58c. Presentation at - A : N/A (02/25/2020 07:55:Laina Theodore RN) 58c. Presentation at - A : Cephalic (02/25/2020 07:55:Laina SenPAUL [place]) Final Route and Method of Del 58d. Baby A Route/Delivery: Vaginal (02/25/2020 14:18:Arlene Shine RN) 58e. Trial of Labor Attempted: No (02/25/2020 07:55:Arlene Shine RN) 58e. Trial of Labor Attempted A: N/A (02/25/2020 07:55:Arlene Shine RN) 58e. Trial of Labor Attempted B: N/A (02/25/2020 07:55:Arlene Shine RN) Maternal Morbidity 59b. 3rd or 4th Degree Lacs: Perineal (02/25/2020 07:55:Arlene Shine RN) 59b. 3rd or 4th Degree Lacs: First Degree (02/25/2020 07:55:Arlene Shine RN) Birthweight Baby A: 3460 (02/25/2020 07:55:Arlene Rl RN) 60a. Pounds : 7 (02/25/2020 07:55:QS system process) 60b. Ounces: 10 (02/25/2020 07:55:QS system process) 61. GA at Delivery Baby A: 41.0 (02/25/2020 07:55:Laina Theodore RN) : Late Term- 41- 41.6 Weeks (02/25/2020 07:55:QS system process) 62a. 5 Minute Baby A: 9 (02/25/2020 07:55:QS system process)
[2020-02-25] MEDS: DOCUSATE SODIUM 100 MG CAPSULE PO SCH (18:10)
[2020-02-25] MEDS: FERROUS SULFATE 325 MG TABLET PO SCH (18:10)
[2020-02-25] MEDS: ACETAMINOPHEN WITH CODEINE #3 TABLET PO PRN (18:11)
[2020-02-25] MEDS: IBUPROFEN 800 MG TABLET PO SCH (21:47)
[2020-02-26] MEDS: IBUPROFEN 800 MG TABLET PO SCH ×4 (06:02→21:37)
[2020-02-26 08:04] LABS: HEMOGLOBIN 9.8 g/dL (12.0-15.5); MEAN CORPUSCULAR HEMOGLOBIN 24.1 pg (27.0-33.4); MEAN CORPUSCULAR HGB CONC 32.8 g/dL (32.0-36.0); MEAN CORPUSCULAR VOLUME 73 fl (80-97); PLATELET COUNT 217 10^3/uL (150-450); RED BLOOD COUNT 4.09 10^6/uL (3.72-5.28); RED CELL DISTRIBUTION WIDTH 15.5 % (11.5-14.0); WHITE BLOOD COUNT 14.9 10^3/uL (4.0-10.5)
[2020-02-26] MEDS: SENNOSIDES/DOCUSATE 8.6-50 MG 1 EACH TABLET PO SCH (09:24)
[2020-02-26] MEDS: FERROUS SULFATE 325 MG TABLET PO SCH ×2 (09:24→17:37)
[2020-02-26] MEDS: DOCUSATE SODIUM 100 MG CAPSULE PO SCH ×2 (09:24→17:37)
[2020-02-26] MEDS: PRENATAL VITAMIN W DHA CAPSULE PO SCH (09:25)
--- NOTE | 2020-02-26 11:36 | PDOC PROGRESS REPORT ---
Subjective-OB Progress Note for:: 02/26/20 Subjective: reports bleeding slowing, pain controlled with current meds. denies needs Physical Exam (OB) Vital Signs: Temp Pulse Resp BP Pulse Ox 98.1 F 74 16 116/57 L 99 02/26/20 07:42 02/26/20 07:42 02/26/20 07:42 02/26/20 07:42 02/26/20 07:42 Intake & Output 02/25/20 02/26/20 02/27/20 06:59 06:59 06:59 Intake Total 1000 140 Balance 1000 140 Weight 78.5 kg - Maternal Morbidity 59. Maternal Morbidity (serious complications experinced by the mother associated with labor and delivery: None of the above - Abdomen Description: Soft Hernia Present: No Fundal Description: Firm, Midline Fundal Height: u/u - u/2 - Abdominal Distension: No distension Tenderness: Nontender - Extremities Lower extremities: Kris's sign - neg Calf: Normal, Nontender Objective-Diagnostic Laboratory: 02/26/20 07:43 02/26/20 07:43 WBC 14.9 H RBC 4.09 Hgb 9.8 L Hct 30.0 L MCV 73 L MCH 24.1 L MCHC 32.8 RDW 15.5 H Plt Count 217 Assessment and Plan(PN) - Time Spent with Patient Time with patient: Less than 15 minutes Medications reviewed and adjusted accordingly: Yes - Disposition Anticipated Discharge Disposition: Home, Self Care Anticipated Discharge Timeframe: within 24 hours
[2020-02-26] MEDS: ACETAMINOPHEN WITH CODEINE #3 TABLET PO PRN ×2 (11:37→20:10)
[2020-02-27] MEDS: IBUPROFEN 800 MG TABLET PO SCH (05:31)
[2020-02-27] MEDS: DOCUSATE SODIUM 100 MG CAPSULE PO SCH (10:33)
[2020-02-27] MEDS: PRENATAL VITAMIN W DHA CAPSULE PO SCH (10:33)
[2020-02-27] MEDS: FERROUS SULFATE 325 MG TABLET PO SCH (10:33)
[2020-02-27] MEDS: SENNOSIDES/DOCUSATE 8.6-50 MG 1 EACH TABLET PO SCH (10:33)
--- NOTE | 2020-02-27 10:41 | PDOC DISCHARGE SUMMARY ---
Impression - Admit/DC Date/PCP Admission Date/Primary Care Provider: 02/25/20 07:49 MIRIAN QUINN MD Discharge Date: 02/27/20 - PP Day #2, doing well, no complaints, A+, rubella Immune, - Discharge Diagnosis (1) Encounter for planned induction of labor Is this a current diagnosis for this admission?: Yes (2) Post term at 41 weeks gestation Is this a current diagnosis for this admission?: Yes (3) Second degree perineal laceration during delivery Is this a current diagnosis for this admission?: Yes - Additional Information Resuscitation Status: Full Code Discharge Diet: As Tolerated, Regular Discharge Activity: Activity As Tolerated Referrals: MIRIAN QUINN MD [Primary Care Provider] - Home Medications: Acetaminophen [Tylenol 325 mg Tablet] 650 mg PO Q4HP PRN tablet 02/27/20 Ibuprofen [Motrin 800 mg Tablet] 800 mg PO Q8 tablet 02/27/20 Vit/Dha [ Multi + Dha Capsule] 1 cap PO DAILY capsule 02/27/20 HPI Reason(s) for Admission: Onset of Labor Procedures: Ultrasound Intrapartum Procedure(s): Spontaneous Vaginal Delivery Complication(s): Laceration-Perineal Laceration-Degree: 1st Hospital Course 59. Maternal Morbidity (serious complications experinced by the mother associated with labor and delivery: None of the above Results Laboratory Results: WBC 14.9 10^3/uL (4.0-10.5) H 02/26/20 07:43 RBC 4.09 10^6/uL (3.72-5.28) 02/26/20 07:43 Hgb 9.8 g/dL (12.0-15.5) L 02/26/20 07:43 Hct 30.0 % (36.0-47.0) L 02/26/20 07:43 MCV 73 fl (80-97) L 02/26/20 07:43 MCH 24.1 pg (27.0-33.4) L 02/26/20 07:43 MCHC 32.8 g/dL (32.0-36.0) 02/26/20 07:43 RDW 15.5 % (11.5-14.0) H 02/26/20 07:43 Plt Count 217 10^3/uL (150-450) 02/26/20 07:43 Lymph % (Auto) 18.4 % (13-45) 02/25/20 08:46 [place] % (Auto) 8.6 % (3-13) 02/25/20 08:46 Eos % (Auto) 0.8 % (0-6) 02/25/20 08:46 Baso % (Auto) 0.2 % (0-2) 02/25/20 08:46 Absolute Neuts (auto) 7.0 10^3/uL (1.7-8.2) 02/25/20 08:46 Absolute Lymphs (auto) 1.8 10^3/uL (0.5-4.7) 02/25/20 08:46 Absolute Monos (auto) 0.8 10^3/uL (0.1-1.4) 02/25/20 08:46 Absolute Eos (auto) 0.1 10^3/uL (0.0-0.6) 02/25/20 08:46 Absolute Basos (auto) 0.0 10^3/uL (0.0-0.2) 02/25/20 08:46 Seg Neutrophils % 72.0 % (42-78) 02/25/20 08:46 Urine Color YELLOW 02/25/20 08:03 Urine Appearance SLIGHTLY-CLOUDY 02/25/20 08:03 Urine pH 6.0 (5.0-9.0) 02/25/20 08:03 Ur Specific [place] 1.017 02/25/20 08:03 Urine Protein NEGATIVE mg/dL (NEGATIVE) 02/25/20 08:03 Urine Glucose (UA) NEGATIVE mg/dL (NEGATIVE) 02/25/20 08:03 Urine Ketones NEGATIVE mg/dL (NEGATIVE) 02/25/20 08:03 Urine Blood NEGATIVE (NEGATIVE) 02/25/20 08:03 Urine Nitrite NEGATIVE (NEGATIVE) 02/25/20 08:03 Urine Bilirubin NEGATIVE (NEGATIVE) 02/25/20 08:03 Urine Urobilinogen NEGATIVE mg/dL (<2.0) 02/25/20 08:03 Ur Leukocyte Esterase LARGE (NEGATIVE) H 02/25/20 08:03 Urine Ascorbic Acid NEGATIVE (NEGATIVE) 02/25/20 08:03 Urine Opiates Screen NEGATIVE 02/25/20 08:03 Urine Methadone Screen NEGATIVE 02/25/20 08:03 Ur Barbiturates Screen NEGATIVE 02/25/20 08:03 Ur Phencyclidine Scrn NEGATIVE 02/25/20 08:03 Ur Amphetamines Screen NEGATIVE 02/25/20 08:03 U Benzodiazepines Scrn NEGATIVE 02/25/20 08:03 Urine Cocaine Screen NEGATIVE 02/25/20 08:03 U Marijuana (THC) Screen NEGATIVE 02/25/20 08:03 Blood Type A POSITIVE 02/25/20 08:46 Antibody Screen NEGATIVE 02/25/20 08:46 Plan Health Concerns: iron rich foods Plan of Treatment: d/c home, f/up with [facility] in 4 wks for PP check Time Spent: Less than 30 Minutes
[2020-02-27] MEDS: ACETAMINOPHEN WITH CODEINE #3 TABLET PO PRN (12:00)
[2020-02-27 12:37] VITALS: BP 116/57
== END 2020-02-27 13:40 | disposition home or self-care (01) | DRG 807 ==
LOC: LR 07:49 → 2S 16:35
PROVIDERS: ADMIT Obstetrics & Gynecology; ATTEND Obstetrics & Gynecology
PROC: 10E0XZZ Delivery of Products of Conception, External Approach (ICD-10-PCS; principal; 2020-02-25)
PROC: 0KQM0ZZ Repair Perineum Muscle, Open Approach (ICD-10-PCS; 2020-02-25)
PROC: 0UQMXZZ Repair Vulva, External Approach (ICD-10-PCS; 2020-02-25)
PROC: 3E033VJ Introduction of Other Hormone into Peripheral Vein, Percutaneous Approach (ICD-10-PCS; 2020-02-25)
PROC: 10907ZC Drainage of Amniotic Fluid, Therapeutic from Products of Conception, Via Natural or Artificial Opening (ICD-10-PCS; 2020-02-25)
DX: O48.0 Post-term pregnancy (principal); Z37.0 Single live birth; G80.9 Cerebral palsy, unspecified; O70.1 Second degree perineal laceration during delivery; O71.82 Other specified trauma to perineum and vulva; Z3A.41 41 weeks gestation of pregnancy; Z87.891 Personal history of nicotine dependence
CPT/HCPCS: 1967; 36415; 80307; 81005; 85025; 85027; 86850; 86900; 86901; 94760; J2590; J2795; J3010; J3490